=== PATIENT | female | born 1995 | race Caucasian/White ===

== ENCOUNTER 2016-06-02 17:56 | Emergency (ER) | payer BC, OTHER ==
[2016-06-02 21:49] LABS: HEMOGLOBIN 12.5 gm/dl (12.3-15.3); RED BLOOD COUNT 4.33 M/UL (4.00-5.10); WHITE BLOOD COUNT 10.8 K/UL (4.5-11.0)
[2016-06-02 22:02] LABS: BUN/CREATININE RATIO 10 (0-10)
== END 2016-06-03 01:10 | disposition home or self-care (01) ==
LOC: ER1 17:56
PROVIDERS: Family Medicine
DX: O23.41 Unspecified infection of urinary tract in pregnancy, first trimester (principal); O99.331 Smoking (tobacco) complicating pregnancy, first trimester; F17.200 Nicotine dependence, unspecified, uncomplicated; Z3A.11 11 weeks gestation of pregnancy
CPT/HCPCS: 36415; 76830; 80053; 81001; 83690; 84702; 84703; 85025; 87077; 87086; 87186; 96365; 96375; 99284; J0696; J2270; J2405; J7050

== ENCOUNTER 2016-12-01 17:20 | Inpatient (IN) | payer BC, OTHER ==
[~2016-12-01] VITALS: Ht 157.5 cm; Wt 93.0 kg
[2016-12-01 19:15] LABS: HEMOGLOBIN 11.2 gm/dl (12.3-15.3); RED BLOOD COUNT 3.92 M/UL (4.00-5.10); WHITE BLOOD COUNT 7.8 K/UL (4.5-11.0)
[2016-12-01 21:12] LABS: BUN/CREATININE RATIO 8 (0-10)
[2016-12-03 06:08] LABS: HEMOGLOBIN 10.2 gm/dl (12.3-15.3); RED BLOOD COUNT 3.64 M/UL (4.00-5.10); WHITE BLOOD COUNT 11.6 K/UL (4.5-11.0)
[2016-12-03] MEDS ORDERED: IBUPROFEN600 MG PO (13:45)
== END 2016-12-03 14:54 | disposition home or self-care (01) | DRG 775 ==
LOC: OB 17:20
PROVIDERS: Obstetrics & Gynecology; ADMIT Obstetrics & Gynecology
PROC: 10907ZC Drainage of Amniotic Fluid, Therapeutic from Products of Conception, Via Natural or Artificial Opening (ICD-10-PCS; principal; 2016-12-01)
PROC: 10E0XZZ Delivery of Products of Conception, External Approach (ICD-10-PCS; 2016-12-01)
PROC: 4A1HX4Z Monitoring of Products of Conception, Cardiac Electrical Activity, External Approach (ICD-10-PCS; 2016-12-01)
DX: O13.4 Gestational [pregnancy-induced] hypertension without significant proteinuria, complicating childbirth (principal); Z3A.37 37 weeks gestation of pregnancy; Z37.0 Single live birth; R80.9 Proteinuria, unspecified; O14.94 Unspecified pre-eclampsia, complicating childbirth; O99.824 Streptococcus B carrier state complicating childbirth
CPT/HCPCS: 36415; 51702; 80048; 80076; 81001; 82248; 82800; 84550; 85025; 85379; 85384; 85610; 85730; 90715; J2405; J2590; J2795; J3010; J7120